=== PATIENT | male | born 1990 | race Caucasian/White ===

== ENCOUNTER 2019-04-10 05:32 | Inpatient (IN) | payer OTHER ==
[~2019-04-10] VITALS: Ht 177.8 cm; Wt 90.3 kg
[2019-04-10] VITALS (10 sets, daily range): BP systolic 99–144; BP diastolic 52–83
[~2019-04-10 05:32] MED LIST: ACHD5005 PO; HYDR1CAP2 PO; MPR22T TP; No Home Meds; OXYC1CAP3 PO; SULF1TAB38 PO
[2019-04-10] MEDS ORDERED: NS IV 1000 ML 1,000 ML IV SCH ×2 (05:58→07:19)
--- NOTE | 2019-04-10 05:58 | ED Abdominal Pain ---
General Stated Complaint: LOWER ABD PAIN Source of Information: Patient, Other Exam Limitations: No Limitations History of Present Illness Date Seen by Provider: Apr 10, 2019 Time Seen by Provider: 05:41 Initial Comments Patient presents to ER with chief complaint of pain in his lower abdomen going on for 3 days now. He went to [facility] yesterday and they told him it was probably a virus and given some Zofran and some other medication. He's been using Pepto-Bismol. Tylenol or ibuprofen. He is not having diarrhea but he does have nausea without vomiting. No history of abdominal surgeries or significant medical problems. Does not take any medications. No allergies or recent trauma. Last bowel movement was yesterday, normal formed. He denies dysuria or discharge. Allergies and Home Medications Allergies Coded Allergies: No Known Drug Allergies (Unverified , 11/05/11) Home Medications Hydrocodone Bit/Acetaminophen 1 Each Tablet, 1-2 EACH PO Q 4 HOURS PRN PAIN Prescribed by: AVRIL HAYWOOD on 11/22/11 1645 Hydrocodone Bit/Acetaminophen 1 Each Tablet, 1-2 EACH PO Q6H PRN Prescribed by: HAYDEE BRIGHT on 05/10/12 0258 Mupirocin 22 Gm Tube, 0 TP TID APPLY TO SPARINGLY TO AFFECTED AREA(S) Prescribed by: JULIO LEONE on 11/05/11 1045 Trimethoprim/Sulfamethoxazole 1 Ea Tablet, 1 EA PO BID FOR INFECTION Prescribed by: JULIO LEONE on 11/05/11 1045 Trimethoprim/Sulfamethoxazole 1 Ea Tablet, 1 EA PO BID Prescribed by: HAYDEE BRIGHT on 05/10/12 025 Patient Home Medication List Home Medication List Reviewed: Yes Review of Systems Review of Systems Constitutional: No chills, No diaphoresis EENTM: No Blurred Vision, No Double Vision Respiratory: Denies Cough, Denies Orthopnea Gastrointestinal: See HPI; Denies Abdomen Distended; Abdominal Pain, Nausea, Poor Fluid Intake; Denies Vomiting Genitourinary: Denies Burning, Denies Discharge Musculoskeletal: No back pain, No joint pain Past Bpswypr-Sfihpb-Kgctdz Hx Patient Social History Alcohol Use: Denies Use Recreational Drug Use: No Smoking Status: Never a Smoker Recent Foreign Travel: No Contact w/Someone Who Travel: No Physical Exam Vital Signs Vital Signs - First Documented 04/10/19 05:55 Temp 36.5 Pulse 91 Resp 18 B/P (MAP) 171/99 (123) Capillary Refill : Height/Weight/BMI Height: '" Weight: lbs. oz. kg; BMI Method:Estimated General Appearance: WD/WN, mild distress HEENT: PERRL/EOMI; No pharynx normal (drug) Respiratory: no respiratory distress, no accessory muscle use Cardiovascular: normal peripheral pulses, regular rate, rhythm Peripheral Pulses: 2+ Radial Pulses (R), 2+ Radial Pulses (L) Gastrointestinal: normal bowel sounds (occasional), no organomegaly, guarding; No rebound; tenderness (all 4 quadrants but especially bilateral lower quadrants); No mass; other (negative for Mohan sign or rebound tenderness over McBurney's point.) Neurologic/Psychiatric: alert, normal mood/affect, oriented x 3 Progress/Results/Core Measures Results/Orders Lab Results Laboratory Tests Test 04/10/19 05:55 Range/Units White Blood Count 19.8 H 4.3-11.0 10^3/uL Red Blood Count 5.70 4.35-5.85 10^6/uL Hemoglobin 16.8 13.3-17.7 G/DL Hematocrit 46 40-54 % Mean Corpuscular Volume 81 80-99 FL Mean Corpuscular Hemoglobin 30 25-34 PG Mean Corpuscular Hemoglobin Concent 36 32-36 G/DL Red Cell Distribution Width 11.9 10.0-14.5 % Platelet Count 316 130-400 10^3/uL Mean Platelet Volume 9.2 7.4-10.4 FL Neutrophils (%) (Auto) 82 H 42-75 % Lymphocytes (%) (Auto) 10 L 12-44 % Monocytes (%) (Auto) 8 0-12 % Eosinophils (%) (Auto) 0 0-10 % Basophils (%) (Auto) 0 0-10 % Neutrophils # (Auto) 16.2 H 1.8-7.8 X 10^3 Lymphocytes # (Auto) 1.9 1.0-4.0 X 10^3 Monocytes # (Auto) 1.6 H 0.0-1.0 X 10^3 Eosinophils # (Auto) 0.0 0.0-0.3 10^3/uL Basophils # (Auto) 0.0 0.0-0.1 10^3/uL Neutrophils % (Manual) 84 % Lymphocytes % (Manual) 2 % Monocytes % (Manual) 2 % Eosinophils % (Manual) 0 % Basophils % (Manual) 0 % Band Neutrophils 1 % Reactive Lymphocytes 11 % Blood Morphology Comment NORMAL Sodium Level 137 135-145 MMOL/L Potassium Level 4.0 3.6-5.0 MMOL/L Chloride Level 102 98-107 MMOL/L Carbon Dioxide Level 23 21-32 MMOL/L Anion Gap 12 5-14 MMOL/L Blood Urea Nitrogen 9 7-18 MG/DL Creatinine 0.90 0.60-1.30 MG/DL Estimat Glomerular Filtration Rate > 60 BUN/Creatinine Ratio 10 Glucose Level 121 H 70-105 MG/DL Calcium Level 9.6 8.5-10.1 MG/DL Corrected Calcium 9.3 8.5-10.1 MG/DL Total Bilirubin 0.8 0.1-1.0 MG/DL Aspartate Amino Transf (AST/SGOT) 12 5-34 U/L Alanine Aminotransferase (ALT/SGPT) 16 0-55 U/L Alkaline Phosphatase 89 40-136 U/L C-Reactive Protein High Sensitivity 5.96 H 0.00-0.50 MG/DL Total Protein 7.6 6.4-8.2 GM/DL Albumin 4.4 3.2-4.5 GM/DL My Orders Orders - QUEENIE ROMERO Ed Iv/Invasive Line Start (04/10/19 05:58) Ns Iv 1000 Ml (Sodium Chloride 0.9%) (04/10/19 05:58) Ondansetron Injection (Zofran Injectio (04/10/19 06:00) Ketorolac Injection (Toradol Injection) (04/10/19 06:00) Cbc With Automated Diff (04/10/19 05:58) Comprehensive Metabolic Panel (04/10/19 05:58) Hs C Reactive Protein (04/10/19 05:58) Ua Culture If Indicated (04/10/19 05:58) Manual Differential (04/10/19 05:55) Ct Abd/Pelv W (Appendicitis) (04/10/19 06:06) Iohexol Injection (Omnipaque 350 Mg/Ml 1 (04/10/19 06:45) Ns (Ivpb) (Sodium Chloride 0.9% Ivpb Bag (04/10/19 06:45) Ed Iv/Invasive Line Start (04/10/19 07:19) Ns Iv 1000 Ml (Sodium Chloride 0.9%) (04/10/19 07:19) Piperacillin/Tazobactam (Bulk) (Zosyn In (04/10/19 07:30) Medications Given in ED Current Medications Medications Dose Ordered Sig/Larissa Route Start Time Stop Time Status Last Admin Dose Admin Iohexol 100 ml ONCE ONCE IV 04/10/19 06:45 04/10/19 06:46 DC 04/10/19 06:45 100 ML Ketorolac Tromethamine 30 mg ONCE ONCE IVP 04/10/19 06:00 04/10/19 06:02 DC 04/10/19 06:05 30 MG Ondansetron HCl 4 mg ONCE ONCE IVP 04/10/19 06:00 04/10/19 06:02 DC 04/10/19 06:06 4 MG Piperacillin Sod/ Tazobactam Sod 4.5 gm/Sodium Chloride 120 ml @ 240 mls/hr ONCE ONCE IV 04/10/19 07:30 04/10/19 07:59 04/10/19 07:49 240 MLS/HR Sodium Chloride 80 ml ONCE ONCE IV 04/10/19 06:45 04/10/19 06:46 DC 04/10/19 06:46 80 ML Vital Signs/I&O 04/10/19 05:55 Temp 36.5 Pulse 91 Resp 18 B/P (MAP) 171/99 (123) Progress Progress Note #1: Time: 06:04 Progress Note Toradol for pain, Zofran for nausea, fluids for his decreased appetite as well as in case we need to do a CT with IV contrast. His heart rates in the low 90s without fever. He does have exquisite tenderness to light touch of his abdomen. It is possible that this started out as gastroenteritis and resulted in an ileus versus obstruction. Appendicitis is still a possibility. Kidney stone would be a distant differential. We'll capture some urine and basic labs. If they're unremarkable then a plain film of the abdomen would be helpful. Progress Note #2: Time: 07:36 Progress Note Patient's pain is significant improvement. We will give him Zosyn for acute appendicitis. Patient is septic criteria a he has a discrete infection/abscess that will be surgical cured not medically cleared so septic workup is not indicated at this time. Diagnostic Imaging Diagonstic Imaging: CT (with IV contrast) Plain Films/CT/US/NM/MRI: abdomen, pelvis Comments Appendicitis NAME: DIONY BERMAN [facility] REC#: [id number] PT STATUS: REG ER : 1990 PHYSICIAN: QUEENIE ROMERO MD ADMIT DATE: 04/10/19/ER Draft Date of Exam:04/10/19 CT ABD/PELV W (APPENDICITIS) PROCEDURE: CT abdomen and pelvis with contrast, rule out appendicitis. TECHNIQUE: Multiple contiguous axial images were obtained through the abdomen and pelvis after the administration of intravenous contrast. INDICATION: Lower abdominal pain. FINDINGS: The lung bases are clear. Liver appears normal. The gallbladder and bile ducts are normal. The pancreas is normal. The spleen is normal. The adrenal glands are normal. The kidneys are normal. There is normal enhancement of the abdominal organs and vessels. Oral contrast present. The stomach and small bowel are not distended. No bowel wall thickening. The appendix is distended with adjacent edema. This measures approximately 2 cm in diameter. There is a small amount of free fluid in the right colic gutter. There is no free air. No pelvic masses. Bladder is normal. No bony abnormalities. IMPRESSION: Distended edematous appendix with adjacent mesenteric edema. Trace of free fluid in the right colic gutter all are consistent with acute appendicitis. This was discussed with the Emergency Room physician. CRITICAL FINDING. Dictated on workstation # [id number] Dict: 04/10/19719 Trans: 04/10/19 0739 [facility] [id number] Interpreted by: KAEL BATISTA MD Electronically signed by: Reviewed: [facility] Reviewed by Me, Discussed w/Radiologist Departure Communication (Admissions) Time/Spoke to Admitting Phy: 07:12 Discussed the case with Dr. Gonzalez and he agrees to admit the patient and will come talk to the patient. Impression Primary Impression: Acute appendicitis Qualified Codes: K35.20 - Acute appendicitis with generalized peritonitis, without abscess Disposition: ADMITTED INPATIENT Condition: Stable Admissions Decision to Admit Reason: Admit from ER (General) Decision to Admit/Date: Apr 10, 2019 Time/Decision to Admit Time: 07:10 Departure-Patient Inst. Referrals: [facility] (PCP/Family) Primary Care Physician QUEENIE ROMERO Apr 10, 2019 05:57
[2019-04-10] MEDS ORDERED: KETOROLAC 30 MG/ML VIAL IVP ONE (06:00)
[2019-04-10] MEDS ORDERED: ONDANSETRON 4 MG/2 ML (SDV) Z0FRAN IVP ONE (06:00)
[2019-04-10 06:05] LABS: BASOPHILS % (AUTO) 0 % (0-10); EOSINOPHILS % (AUTO) 0 % (0-10); HEMATOCRIT 46 % (40-54); HEMOGLOBIN 16.8 G/DL (13.3-17.7); LYMPHOCYTES # (AUTO) 1.9 X 10^3 (1.0-4.0); LYMPHOCYTES % (AUTO) 10 % (12-44); MEAN CORPUSCULAR HEMOGLOBIN 30 PG (25-34); MEAN CORPUSCULAR HGB CONC 36 G/DL (32-36); MEAN CORPUSCULAR VOLUME 81 FL (80-99); MEAN PLATELET VOLUME 9.2 FL (7.4-10.4); MONOCYTES # (AUTO) 1.6 X 10^3 (0.0-1.0); MONOCYTES % (AUTO) 8 % (0-12); NEUTROPHILS # (AUTO) 16.2 X 10^3 (1.8-7.8); NEUTROPHILS % (AUTO) 82 % (42-75); PLATELET COUNT 316 10^3/uL (130-400); RED CELL DISTRIBUTION WIDTH 11.9 % (10.0-14.5); WHITE BLOOD COUNT 19.8 10^3/uL (4.3-11.0)
[2019-04-10 06:20] LABS: BAND NEUTROPHILS 1 %; BASOPHILS % (MANUAL) 0 %; EOSINOPHILS % (MANUAL) 0 %; LYMPHOCYTES % (MANUAL) 2 %; MONOCYTES % (MANUAL) 2 %; NEUTROPHILS % (MANUAL) 84 %; REACTIVE LYMPHOCYTES 11 %
[2019-04-10 06:21] LABS: RBC MORPH NORMAL
[2019-04-10 06:25] LABS: ALANINE AMINOTRANSFERASE 16 U/L (0-55); ALBUMIN 4.4 GM/DL (3.2-4.5); ALKALINE PHOSPHATASE 89 U/L (40-136); BILIRUBIN,TOTAL 0.8 MG/DL (0.1-1.0); BUN/CREATININE RATIO 10; CALCIUM 9.6 MG/DL (8.5-10.1); CARBON DIOXIDE 23 MMOL/L (21-32); CHLORIDE 102 MMOL/L (98-107); GFR ESTIMATED > 60; GLUCOSE 121 MG/DL (70-105); SODIUM 137 MMOL/L (135-145); TOTAL PROTEIN 7.6 GM/DL (6.4-8.2)
[2019-04-10] MEDS ORDERED: IOHEXOL 350 MG/ML 100 ML (OMNIPAQUE 350) VIAL IV ONE (06:45)
[2019-04-10] MEDS ORDERED: NS 100 ML (IVPB) BAG IV ONE (06:45)
--- NOTE | 2019-04-10 07:29 | Diagnostic Imaging Report ---
PROCEDURE: CT abdomen and pelvis with contrast, rule out appendicitis. TECHNIQUE: Multiple contiguous axial images were obtained through the abdomen and pelvis after the administration of intravenous contrast. INDICATION: Lower abdominal pain. FINDINGS: The lung bases are clear. Liver appears normal. The gallbladder and bile ducts are normal. The pancreas is normal. The spleen is normal. The adrenal glands are normal. The kidneys are normal. There is normal enhancement of the abdominal organs and vessels. Oral contrast present. The stomach and small bowel are not distended. No bowel wall thickening. The appendix is distended with adjacent edema. This measures approximately 2 cm in diameter. There is a small amount of free fluid in the right colic gutter. There is no free air. No pelvic masses. Bladder is normal. No bony abnormalities. IMPRESSION: Distended edematous appendix with adjacent mesenteric edema. Trace of free fluid in the right colic gutter all are consistent with acute appendicitis. This was discussed with the Emergency Room physician. CRITICAL FINDING. Dictated by: Dictated on workstation # [id number]
[2019-04-10] MEDS ORDERED: PIPERACILLIN/TAZOBACTAM (BULK) 4.5 GM in NS (IVPB) 100 ML IV ONE (07:30)
--- NOTE | 2019-04-10 08:15 | NUR ---
DR BELL HERE TO SEE PT
[2019-04-10 08:20] LABS: BILIRUBIN,URINE NEGATIVE (NEGATIVE); CLARITY,URINE CLEAR; COLOR,URINE YELLOW; GLUCOSE, URINE (UA) NEGATIVE (NEGATIVE); KETONES,URINE NEGATIVE (NEGATIVE); LEUKOCYTE ESTERASE ,URINE NEGATIVE (NEGATIVE); NITRITE,URINE NEGATIVE (NEGATIVE); PH,URINE 6.5 (5-9); PROTEIN,URINE 1+ (NEGATIVE); UROBILINOGEN,URINE NORMAL (NORMAL)
--- NOTE | 2019-04-10 08:31 | Consultation - Surgery ---
History of Present Illness History of Present Illness Patient Consulted On(gena/time) 04/10/19 08:25 Time Seen by Provider: 08:01 History of Present Illness Surgery asked to consult regarding appendicitis. HPI per ED: Patient presents to ER with chief complaint of pain in his lower abdomen going on for 3 days now. He went to [facility] yesterday and they told him it was probably a virus and given some Zofran and some other medication. He's been using Pepto-Bismol. Tylenol or ibuprofen. He is not having diarrhea but he does have nausea without vomiting. No history of abdominal surgeries or significant medical problems. Does not take any medications. No allergies or recent trauma. Last bowel movement was yesterday, normal formed. He denies dysuria or discharge. When I spoke to pt he described the pain as sharp, crampy and stabbing; rated it as 10 out of 10, but now 4 out of 10 with pain meds. Pain radiates out to entire abdomen, but worse in RLQ. Movement and laying on his back makes pain worse. Laying still on his side and the pain meds have helped decrease the pain. Allergies and Home Medications Allergies Coded Allergies: No Known Drug Allergies (Unverified , 11/05/11) Home Medications Hydrocodone Bit/Acetaminophen 1 Each Tablet, 1-2 EACH PO Q 4 HOURS PRN PAIN Prescribed by: AVRIL HAYWOOD on 11/22/11 1645 Hydrocodone Bit/Acetaminophen 1 Each Tablet, 1-2 EACH PO Q6H PRN Prescribed by: HAYDEE BRIGHT on 05/10/12257 Mupirocin 22 Gm Tube, 0 TP TID APPLY TO SPARINGLY TO AFFECTED AREA(S) Prescribed by: JULIO LEONE on 11/05/11 1045 Trimethoprim/Sulfamethoxazole 1 Ea Tablet, 1 EA PO BID FOR INFECTION Prescribed by: JULIO LEONE on 11/05/11 1045 Trimethoprim/Sulfamethoxazole 1 Ea Tablet, 1 EA PO BID Prescribed by: HAYDEE BRIGHT on 05/10/12257 Patient Home Medication List Home Medication List Reviewed: Yes Past Wfepssv-Tcnzjb-Pneirf Hx Patient Social History Alcohol Use: Denies Use Recreational Drug Use: No Smoking Status: Never a Smoker Recent Foreign Travel: No Contact w/Someone Who Travel: No Recent Infectious Disease Expo: No Recent Hopitalizations: No Seasonal Allergies Seasonal Allergies: No Surgeries History of Surgeries: Yes Surgeries: Tonsillectomy Respiratory History of Respiratory Disorde: Yes Respiratory Disorders: Asthma Cardiovascular History of Cardiac Disorders: No Neurological History of Neurological Disord: No Genitourinary History of Genitourinary Disor: No Gastrointestinal History of Gastrointestinal Di: No Musculoskeletal History of Musculoskeletal Dis: No Endocrine History of Endocrine Disorders: No HEENT History of HEENT Disorders: No Cancer History of Cancer: No Psychosocial History of Psychiatric Problem: No Integumentary History of Skin or Integumenta: No Blood Transfusions History of Blood Disorders: No Family Medical History Significant Family History: Hypertension (father and mother) Review of Systems-General Constitutional: chills, diaphoresis, weakness EENTM: No blurred vision, No double vision, No mouth pain, No mouth swelling, No epistaxis Respiratory: No cough, No dyspnea on exertion, No hemoptysis, No short of breath Cardiovascular: No chest pain, No edema, No palpitations Gastrointestinal: abdominal pain (RLQ); No jaundice; loss of appetite, nausea; No vomiting Genitourinary: No dysuria, No frequency, No hematuria Musculoskeletal: No joint pain, No joint swelling, No muscle pain, No muscle stiffness Skin: No change in color, No change in hair/nails Psychiatric/Neurological: Denies Anxiety, Denies Depressed, Denies Seizure, Denies Tremors Other pt denies any hx of abnormal bleeding or bruising Physical Exam-General Problems Physical Exam Vital Signs Vital Signs - First Documented 04/10/19 05:55 Temp 36.5 Pulse 91 Resp 18 B/P (MAP) 171/99 (123) Capillary Refill : Less Than 3 Seconds General Appearance: WD/WN, moderate distress Eyes: Bilateral Eye PERRL, Bilateral Eye EOMI HEENT: pharynx normal; No scleral icterus (R), No scleral icterus (L) Neck: non-tender, full range of motion, supple, normal inspection Respiratory: chest non-tender, lungs clear, normal breath sounds, no respiratory distress, no accessory muscle use Cardiovascular: regular rate, rhythm, no murmur Gastrointestinal: normal bowel sounds, no organomegaly, no pulsatile mass; No distended; guarding (voluntary), tenderness (diffusely but the most in RLQ); No hernia Back: normal inspection, no CVA tenderness, no vertebral tenderness Extremities: normal range of motion, non-tender, normal inspection, no pedal edema, no calf tenderness, normal capillary refill Neurologic/Psychiatric: a r collections rep II-XII nml as tested, alert, normal mood/affect, oriented x 3 Skin: normal color, warm/dry Lymphatic: no adenopathy (neck, axilla or groin) Data Review Labs Laboratory Tests 04/10/19 05:55: White Blood Count 19.8H, Red Blood Count 5.70, Hemoglobin 16.8, Hematocrit 46, Mean Corpuscular Volume 81, Mean Corpuscular Hemoglobin 30, Mean Corpuscular Hemoglobin Concent 36, Red Cell Distribution Width 11.9, Platelet Count 316, Mean Platelet Volume 9.2, Neutrophils (%) (Auto) 82H, Lymphocytes (%) (Auto) 10L , Monocytes (%) (Auto) 8, Eosinophils (%) (Auto) 0, Basophils (%) (Auto) 0, Neutrophils # (Auto) 16.2H, Lymphocytes # (Auto) 1.9, Monocytes # (Auto) 1.6H, Eosinophils # (Auto) 0.0, Basophils # (Auto) 0.0, Neutrophils % (Manual) 84, Lymphocytes % (Manual) 2, Monocytes % (Manual) 2, Eosinophils % (Manual) 0, Basophils % (Manual) 0, Band Neutrophils 1, Reactive Lymphocytes 11, Blood Morphology Comment NORMAL, Sodium Level 137, Potassium Level 4.0, Chloride Level 102, Carbon Dioxide Level 23, Anion Gap 12, Blood Urea Nitrogen 9, Creatinine 0.90, Estimat Glomerular Filtration Rate > 60, BUN/Creatinine Ratio 10, Glucose Level 121H, Calcium Level 9.6, Corrected Calcium 9.3, Total Bilirubin 0.8, Aspartate Amino Transf (AST/SGOT) 12, Alanine Aminotransferase (ALT/SGPT) 16, Alkaline Phosphatase 89, C-Reactive Protein High Sensitivity 5.96H, Total Protein 7.6, Albumin 4.4 04/10/19 08:10: Assessment/Plan Assessment/Plan Assessment/Plan Acute Appendicitis Plan is to take pt to the OR for Laparoscopic Appendectomy, possible open; will get consent. For now pt will be placed on IV ABX, pain control, anti-emetics, IVF, NPO and will get him ready to go to the OR. Discussed the procedure with pt and his parents; went over risks and complications not limited to pain, bleeding, infection, scar, damage to bowel and need for further procedure. All questions answered to their satisfaction. KAEL ARAUZ DO Apr 10, 2019 08:31
[2019-04-10 08:35] LABS: BACTERIA,URINE NEGATIVE /HPF; SQUAMOUS EPITHELIAL CELL,UR RARE /HPF; WBC,URINE RARE /HPF
--- NOTE | 2019-04-10 08:50 | NUR ---
PT ADMITTED TO ROOM 422. PT RESTING WITH EYES CLOSED. RATING PAIN 7/10 IN RIGHT LOWER ABDOMEN. PARENTS AT BEDSIDE. HISTORY AND ASSESSMENT COMPLETED. CALL LIGHT WITHIN REACH.
[2019-04-10] MEDS ORDERED: SEVOFLURANE (ULTANE) 15 ML INHAL SOLN ONE (09:21)
[2019-04-10] MEDS ORDERED: LIDOCAINE PF 2% 5 ML (XYLOCAINE) VIAL ONE (09:21)
[2019-04-10] MEDS ORDERED: ROCURONIUM 10 MG/ML 5 ML SYRINGE IV ONE (09:21)
[2019-04-10] MEDS ORDERED: DEXAMETHASONE 10 MG/ML (DECADRON) 1 ML VIAL ONE (09:21)
[2019-04-10] MEDS ORDERED: proPOfol 200 MG/20 ML (DIPRIVAN) VIAL IV ONE (09:21)
[2019-04-10] MEDS ORDERED: fentaNYL INJECTION 100 MCG/2 ML AMP ONE ×2 (09:21→10:29)
[2019-04-10] MEDS ORDERED: ONDANSETRON 4 MG/2 ML (SDV) Z0FRAN ONE (09:21)
[2019-04-10] MEDS ORDERED: MIDAZOLAM 2 MG/2 ML (VERSED) VIAL ONE (09:22)
--- NOTE | 2019-04-10 09:30 | NUR ---
PT TAKEN OFF FLOOR VIA PT BED FOR PROCEDURE AT THIS TIME.
[2019-04-10] MEDS ORDERED: BUP/EPI 0.5% 1:200,000 (SENSORCAINE) 30 ML VIAL ONE (09:31)
[2019-04-10] MEDS: LACTATED RINGERS 1,000 ML IV PRN ×2 (09:48→10:24)
[2019-04-10] MEDS ORDERED: ACETAMINOPHEN 650 MG SUPP (TYLENOL) PR PRN (10:00)
[2019-04-10] MEDS ORDERED: MEPERIDINE (DEMEROL) INJ 50 MG/ML IVP ONE (10:00)
[2019-04-10] MEDS ORDERED: morphine INJ 10 MG/ML 1ML (SYR OR VIAL) IVP ONE (10:00)
[2019-04-10] MEDS ORDERED: KETOROLAC 15 MG/ML VIAL IV PRN (10:00)
[2019-04-10] MEDS ORDERED: fentaNYL INJECTION 100 MCG/2 ML AMP IV PRN (10:00)
[2019-04-10] MEDS ORDERED: ONDANSETRON 4 MG/2 ML (SDV) Z0FRAN IVP PRN (10:00)
[2019-04-10] MEDS ORDERED: HYDROmorphone 2 MG/ML VIAL (DILAUDID) IV ONE (10:00)
[2019-04-10] MEDS ORDERED: ONDANSETRON 4 MG/2 ML (SDV) Z0FRAN IV PRN (10:00)
[2019-04-10] MEDS ORDERED: LACTATED RINGERS 1,000 ML IV SCH (10:00)
[2019-04-10] MEDS ORDERED: CATHETER FLUSH 10 ML SYR IV PRN (10:00)
--- NOTE | 2019-04-10 10:48 | Progress Note-Post Operative ---
Post-Operative Progess Note Surgeon (s)/Assembler Type Bar And Segment (s) Surgeon KAEL ARAUZ DO Assembler Type Bar And Segment: ILIANA Lee Pre-Operative Diagnosis Acute Appy Post-Operative Diagnosis same Procedure & Operative Findings Date of Procedure 04/10/19 Procedure Performed/Findings lap appy Anesthesia Type GET Estimated Blood Loss Estimated blood loss (mL): scant Specimens/Packing Specimens Removed KAEL Carrasco DO Apr 10, 2019 10:48
[2019-04-10] MEDS ORDERED: ACHD5005 PO (10:51)
--- NOTE | 2019-04-10 10:51 | Discharge Inst-Surgical ---
Discharge Inst-Surgical Reconcile Patient Problems Problems Reviewed?: Yes Depart Medication/Instructions New, Converted or Re-Newed RX: RX Given to Pt/Family Patient Instructions Follow up Appt: Make appointment for 1 week. [phone] Instructions: No lifting greater than 20 pounds. No strenuous activity. May shower in 24 hours, no tub bath or soaking. Use incentive spirometer at home as directed. No Smoking Skin/Wound Care: May remove bandages in am. You need to leave the Dermabond on incision it will fall off on it's own. Symptoms to Report: Appetite Changes, Extremity Discoloration, Numbness/Tingling, Swelling Increased, Bleeding Excessive, Eyesight Changes, Pain Increased, Urine Color Change, Constipation(Persistent), Fever over 101 degree F, Pain/Pressure in chest, Urinating Difficulty, Cough Up/Vomit Blood, Heart Beat Irreg/Pounding, Pain/Pressure in jaw, Cramps in feet or legs, Lightheadedness, Pain/Pressure in shoulder, Diarrhea(Persistent), Memory Changes Suddenly, Questions/Concerns, Weight gain consecutive days, Dizziness/Fainting, Nausea/Vomiting, Shortness of Breath, Weight gain over 2 pounds If questions or concerns contact your physician Or seek help at emergency department. Activity Activity as Tolerated: Yes Activity Instructions: Avoid Stress to Incision Driving Instructions: No Driving/Refer to Dr. Soria Discharge Diet: No Restrictions Diet After 24 Hours: Clear Liquid if Nauseous If Any Problems/Questions/Issu: Contact Your Physician, Go to Emergency Room Skin/Wound Care Infection Signs and Symptoms: Increased Redness, Foul Odor of Wound, Increased Drainage, Skin Itchy or Has a Rash, Increased Swelling, Temperature Above 101 F Wound Care Comment: heating pad to shoulder or neck tonight for pain Bathing Instructions: Shower Stitches/Paul/Dermabond Dis: Dermabond Ice Pack: Ice On and Off Site (at incisions for pain) KAEL ARAUZ DO Apr 10, 2019 10:50
--- NOTE | 2019-04-10 11:55 | NUR ---
PT BACK TO FLOOR FROM RECOVERY. FAMILY AT SIDE. VSS, PT DENIES NEEDING ANY PAIN MEDICATION AT THIS TIME. X3 LAP SITES COVERED WITH BAND-AIDE DRY AND INTACT.
[2019-04-10] MEDS ORDERED: AMOX-355 PO (13:16)
[2019-04-10] MEDS ORDERED: HYDROcodone/APAP 5 MG/325 MG (LORTAB) TAB PO ONE (13:30)
--- NOTE | 2019-04-10 13:36 | OPERATIVE REPORT ---
DATE OF SERVICE: 04/10/2019 PREOPERATIVE DIAGNOSIS: Acute appendicitis. POSTOPERATIVE DIAGNOSIS: Acute appendicitis. PROCEDURE: Laparoscopic appendectomy. SURGEON: Kevan Gonzalez DO COMPUTER ANIMATOR: DIA Momin. SPECIMEN: Appendix. BLOOD LOSS: Scant. FLUIDS: Per anesthesia. POSTOPERATIVE CONDITION: Stable. INDICATION FOR PROCEDURE: The patient is a 28-year-old male, who had an elevated white count, right lower quadrant pain and a CAT scan positive for appendicitis. FINDINGS: The patient had appendicitis. He had some fibrinous material, but no perforation of purulent fluid. PROCEDURE NOTE: After informed consent was obtained, the patient was brought to the operating room, placed on the table in supine position. He was sterilely prepped and draped in normal fashion. Local lidocaine was used to infiltrate the skin above the umbilicus. I made an incision with #11 blade, carried down through the skin into subcutaneous tissue, then deepened down to subcutaneous tissue with Bovie electrocautery down to the fascia. Fascia was incised with Bovie electrocautery and bluntly entered the abdomen, swept a finger around, placed 0 Vicryl [id number] suture and placed a 11 mm trocar port under direct visualization. Created pneumoperitoneum and then placed 2 more ports in normal fashion using local lidocaine, 11 blade for stab incision and the VersaStep system, all done under direct visualization, one suprapubically and one in the left lower quadrant. The patient was then placed slightly Trendelenburg and rotated to left, able to see the enlarged appendix. There was fibrinous material around it, but it did not look like it perforated. It was actually starting to also look a little bit dusky. Picture was taken and then able to grasp the mesoappendix with a grasper and then come across the mesoappendix with the LigaSure, clamping, coagulating in a stepwise fashion completely freeing up the appendix that was just attached to the cecum. Once this was done, then switched to 5 mm camera and brought in Endo-ARTURO 2.5 mm stapler, placed it across the base of the appendix and then clamped and fired, held for 30 seconds and then transected and pulled the Endo-ARTURO out, placed a bag in the abdomen, placed the appendix in the bag and then removed this through the supraumbilical incision. Placed the port back in, copiously irrigated with normal saline, suctioned this out, took a picture of the staple line, looked good. At this point, then placed the patient supine, removed all ports under direct visualization allowing pneumoperitoneum to escape, closed supraumbilical incision, closing the fascia with 0 Vicryl suture previously placed. Copiously irrigated all incisions with normal saline and closing the supraumbilical incision with 3 interrupted 4-0 undyed Monocryl subcuticular stitches, closed the 2 small 5 mm incisions with a single interrupted 4-0 undyed Monocryl subcuticular stitch. Area was cleaned and dried. Dermabond was placed as well as Band-Aid. The patient tolerated the procedure well. Sponge, instrument and needle counts were correct at the end of the case. Job ID: [id number] DocumentID: [id number] Dictated Date: 04/10/2019 10:49:27 Auto Wheel Alignment Specialist Date: 04/10/2019 13:35:23 Dictated By: KEVAN GONZALEZ DO
[2019-04-10] MEDS ORDERED: PIPERACILLIN/TAZO 4.5 GM/NS 100 ML IV SCH ×2 (14:00)
[2019-04-10] MEDS ORDERED: HYDROcodone/APAP 5 MG/325 MG (LORTAB) TAB PO NR (17:00)
--- NOTE | 2019-04-11 09:31 | Anesthesia-General Post-Op ---
General Patient Condition Mental Status/LOC: Same as Preop Cardiovascular: Satisfactory Nausea/Vomiting: Absent Respiratory: Satisfactory Pain: Controlled Complications: Absent Post Op Complications Complications None Follow Up Care/Instructions Patient Instructions None needed. Anesthesia/Patient Condition Patient Condition Patient is doing well, no complaints, stable vital signs, no apparent adverse anesthesia problems. No complications reported per nursing. D/C home per [facility] Criteria: Yes KOFFI DESAI CRNA Apr 11, 2019 09:31
== END 2019-04-10 17:00 | disposition home or self-care (01) | DRG 343 ==
LOC: EDUNIT# 05:32 → ER 05:35 → 4TH 07:53
PROVIDERS: ADMIT Surgery; ATTEND Surgery
PROC: 0DTJ4ZZ Resection of Appendix, Percutaneous Endoscopic Approach (ICD-10-PCS; principal; 2019-04-10 09:40)
DX: K35.80 Unspecified acute appendicitis (principal); J45.909 Unspecified asthma, uncomplicated
CPT/HCPCS: 36415; 74177; 80053; 81000; 85007; 85027; 86141; 96361; 96365; 96375